=== PATIENT | female | born 1960 ===

== ENCOUNTER 2017-07-31 13:41 | Emergency (ER) | payer OTHER ==
[~2017-07-31] VITALS: Ht 157.5 cm; Wt 68.5 kg
[2017-07-31 14:06] VITALS: BP 129/73; Ht 157.5 cm; Wt 68.5 kg
== END 2017-07-31 15:39 | disposition home or self-care (01) ==
LOC: ED 13:41
DX: S61.251A Open bite of left index finger without damage to nail, initial encounter (principal); S61.250A Open bite of right index finger without damage to nail, initial encounter; W54.0XXA Bitten by dog, initial encounter; Y93.89 Activity, other specified; Y92.89 Other specified places as the place of occurrence of the external cause; Y99.8 Other external cause status
CPT/HCPCS: 90715